=== PATIENT | male | born 1995 | race Caucasian/White ===

== ENCOUNTER 2017-06-02 20:13 | Emergency (ER) | payer SELFPAY ==
[~2017-06-02 20:13] MED LIST: EPIP0.3I IM; HYDR50TA94 PO; MONT10TA2 PO; PRED20 PO; RANI150C PO
== END 2017-06-02 20:26 | disposition left against medical advice (07) ==
LOC: NED 20:13
DX: R10.9 Unspecified abdominal pain (principal); Z53.21 Procedure and treatment not carried out due to patient leaving prior to being seen by health care provider
CPT/HCPCS: 99281

== ENCOUNTER 2017-07-10 15:50 | Emergency (ER) | payer SELFPAY ==
[~2017-07-10] VITALS: Ht 177.8 cm; Wt 92.0 kg
[2017-07-10 16:09] VITALS: BP 144/66; PULSE 55; RESP 16; TEMP 98.3; O2SAT 100
--- NOTE | 2017-07-10 17:34 | PD ---
HPI Chief Complaint: Abdominal Pain Time Seen by Provider: 17:34 Travel History International Travel<30 days: No Contact w/Intl Traveler<30days: No Traveled to known affect area: No History of Present Illness HPI 21-year-old male came to the emergency room with his mother with history of severe left upper quadrant abdominal pain that started this morning and made the patient double over. The pain continued for few hours until the patient came to the emergency room triage and while in the waiting room the pain went away on its own. Currently patient is pain-free. He says he has had similar symptoms about 4-5 weeks ago and again 4 months ago. He was seen in urgent care 4 months ago and was told that it could be gastric ulcer and was discharged home on medications for that. Patient took it and finished the course until the symptoms return 4-6 weeks ago. Vital signs have been stable. Currently his pain is 0 out of 10. When the pain comes patient says that goes from the front to the back of his left upper side. Pain seems to get worse when he tries to eat or drink something while he is having one of the episodes. No history of associated vomiting or diarrhea. No history of constipation. Pain feels like a knife sticking through his abdomen going to the back. No hematuria, dysuria or any other urinary symptoms. [facility] Past Medical History Narrative Medical List of his past medical, surgical, social and family history is reviewed from the nursing note Immunizations Current: Yes Social History Alcohol Use: No Tobacco Use: Yes (chews) Substance Use: No Allergies-Medications (Allergen,Severity, Reaction): Coded Allergies: montelukast (Verified Allergy, Unknown, Swelling, 07/10/17) Comments List of his allergies reviewed from the nursing note. Reported Meds & Prescriptions Reported Meds & Active Scripts Active Flomax (Tamsulosin HCl) 0.4 Mg Cap 0.4 Mg PO HS Macrobid (Nitrofurantoin Monoh/Nitrofur Macro) 100 Mg Cap 100 Mg PO BID 10 Days Zofran Odt (Ondansetron Odt) 4 Mg Tab 4 Mg SL Q6HR PRN Hydrocodone-Acetaminophen 5-325 mg Tab 1 Tab PO Q6H PRN Epipen (Epinephrine HCl) 0.3 Mg Inj 0.3 Mg IM ONCE PRN GIVE IM IN THIGH, MAY REPEAT IF NEEDED Deltasone (Prednisone) 20 Mg Tab 20 Mg PO BID Zantac (Ranitidine HCl) 150 Mg Cap 150 Mg PO BID Atarax (Hydroxyzine HCl) 50 Mg Tab 50 Mg PO Q6HR PRN Reported Singulair (Montelukast Sodium) 10 Mg Tab 10 Mg PO HS Narrative Medication List of his home medications reviewed from the nursing note Review of Systems Except as stated in HPI: all other systems reviewed are Neg Gastrointestinal: Positive: Abdominal Pain Physical Exam Narrative GENERAL: Awake, alert, no obvious distress SKIN: Focused skin assessment warm/dry. HEAD: Atraumatic. Normocephalic. EYES: Pupils equal and round. No scleral icterus. No injection or drainage. ENT: No nasal bleeding or discharge. Mucous membranes pink and moist. NECK: Trachea midline. No JVD. CARDIOVASCULAR: Regular rate and rhythm. No murmur appreciated. RESPIRATORY: No accessory muscle use. Clear to auscultation. Breath sounds equal bilaterally. GASTROINTESTINAL: Abdomen soft, non-tender, nondistended. Hepatic and splenic margins not palpable. MUSCULOSKELETAL: No obvious deformities. No clubbing. No cyanosis. No edema. NEUROLOGICAL: Awake and alert. No obvious cranial nerve deficits. Motor grossly within normal limits. Normal speech. PSYCHIATRIC: Appropriate mood and affect; insight and judgment normal. Data Data Last Documented VS Vital Signs Date Time Temp Pulse Resp B/P (MAP) Pulse Ox O2 Delivery O2 Flow Rate FiO2 07/10/17 20:25 55 20 136/63 (87) 100 07/10/17 16:09 98.3 Orders Orders Complete Blood Count With Diff (07/10/17 18:17) Comprehensive Metabolic Panel (07/10/17 18:17) Lipase (07/10/17 18:17) Urinalysis - C+S If Indicated (07/10/17 18:17) Abdomen, Flat & Upright (07/10/17 ) Iv Access Insert/Monitor (07/10/17 18:17) Ecg Monitoring (07/10/17 18:17) Oximetry (07/10/17 18:17) Sodium Chloride 0.9% Flush (Ns Flush) (07/10/17 18:30) Urine Culture (07/10/17 18:59) Ct Abd/Pel W/O Iv Contrast (07/10/17 ) Ceftriaxone Inj (Rocephin Inj) (07/10/17 20:15) Blood Culture (07/10/17 20:10) Ed Discharge Order (07/10/17 20:16) Labs Laboratory Tests Test 07/10/17 18:59 White Blood Count 14.7 TH/MM3 Red Blood Count 5.50 MIL/MM3 Hemoglobin 17.1 GM/DL Hematocrit 50.1 % Mean Corpuscular Volume 91.2 FL Mean Corpuscular Hemoglobin 31.2 PG Mean Corpuscular Hemoglobin Concent 34.2 % Red Cell Distribution Width 12.5 % Platelet Count 210 TH/MM3 Mean Platelet Volume 9.0 FL Neutrophils (%) (Auto) 82.3 % Lymphocytes (%) (Auto) 12.6 % Monocytes (%) (Auto) 4.7 % Eosinophils (%) (Auto) 0.1 % Basophils (%) (Auto) 0.3 % Neutrophils # (Auto) 12.1 TH/MM3 Lymphocytes # (Auto) 1.8 TH/MM3 Monocytes # (Auto) 0.7 TH/MM3 Eosinophils # (Auto) 0.0 TH/MM3 Basophils # (Auto) 0.0 TH/MM3 CBC Comment DIFF FINAL Differential Comment Urine Color LIGHT-RED Urine Turbidity HAZY Urine pH 7.0 Urine Specific [place] 1.018 Urine Protein 30 mg/dL Urine Glucose (UA) NEG mg/dL Urine Ketones 10 mg/dL Urine Occult Blood LARGE Urine Nitrite NEG Urine Bilirubin NEG Urine Urobilinogen LESS THAN 2.0 MG/DL Urine Leukocyte Esterase NEG Urine RBC /hpf Urine WBC 18 /hpf Urine Squamous Epithelial Cells <1 /hpf Urine Bacteria RARE /hpf Urine Mucus FEW /lpf Microscopic Urinalysis Comment CULTURE INDICATED Blood Urea Nitrogen 13 MG/DL Creatinine 1.10 MG/DL Random Glucose 126 MG/DL Total Protein 7.8 GM/DL Albumin 4.7 GM/DL Calcium Level 9.8 MG/DL Alkaline Phosphatase 124 U/L Aspartate Amino Transf (AST/SGOT) 15 U/L Alanine Aminotransferase (ALT/SGPT) 19 U/L Total Bilirubin 0.9 MG/DL Sodium Level 140 MEQ/L Potassium Level 3.8 MEQ/L Chloride Level 106 MEQ/L Carbon Dioxide Level 23.8 MEQ/L Anion Gap 10 MEQ/L Estimat Glomerular Filtration Rate 86 ML/MIN Lipase 166 U/L [facility] Medical Decision Making Medical Screen Exam Complete: Yes Emergency Medical Condition: Yes Medical Record Reviewed: Yes Differential Diagnosis Acute gastritis, acute pancreatitis, ureteral colic, UTI Narrative Course 6:39 PM awaiting for blood test results to come back. I have ordered an x-ray of the abdomen and pelvis. I have explained to the patient that the fact that pain is completely gone and the abdomen is soft and nonsurgical my plan is if the workup is negative he will be discharged home. He will need to find a primary care for himself and have a referral to a GI specialist for further outpatient workup. 7:36 PM blood test results are back and patient has some leukocytosis. UA suggestive of large quantity of blood. Given this I am concerned for ureteral calculus. I have ordered a CAT scan of his abdomen and pelvis. X-ray is negative. Awaiting for the CAT scan to be done and resulted. 8:[address] scan shows a 7 mm proximal ureteral stone causing moderate obstructive uropathy. UA also was suggestive of possible UTI. Have ordered IV Rocephin and blood culture given the fact the patient has some leukocytosis. However given the fact that he is afebrile and his pain is controlled uncomfortable discharging him home on pain medication and antibiotic. He will need to follow-up with the urologist solutions analyst. Procedures EKG Prior to Arrival: No Diagnosis Primary Impression: Ureteral colic Additional Impressions: UTI (urinary tract infection) Qualified Codes: N39.0 - Urinary tract infection, site not specified; R31.9 - Hematuria, unspecified Leukocytosis Qualified Codes: D72.829 - Elevated white blood cell count, unspecified Referrals: Redd Davey MD 2 days Additional Instructions: Please call the urologist was name and number been provided to you on the discharge instruction. Take the medications as per the prescription direction. Return to the ER if condition worsens any other new concerns like vomiting leading to unable to hold your medications down and/or fever. Med/Other Pt SpecificInfo: Prescription(s) given Scripts Tamsulosin (Flomax) 0.4 Mg Cap 0.4 MG PO HS for Manage Prostate Problems, #30 CAP 0 Refills Prov: Lucia Kulkarni MD 07/10/17 Nitrofurantoin Monohydrate Macrocrystals (Macrobid) 100 Mg Cap 100 MG PO BID for Infection for 10 Days, #20 CAP 0 Refills Prov: Lucia Kulkarni MD 07/10/17 Ondansetron Odt (Zofran Odt) 4 Mg Tab 4 MG SL Q6HR Y for Nausea/Vomiting, #30 TAB 0 Refills Prov: Lucia Kulkarni MD 07/10/17 Hydrocodone-Acetaminophen (Hydrocodone-Acetaminophen) 5-325 mg Tab 1 TAB PO Q6H Y for PAIN, #15 TAB 0 Refills Prov: Lucia Kulkarni MD 07/10/17 Disposition: 01 DISCHARGE HOME Condition: Stable Lucia Kulkarni MD Jul 10, 2017 17:34
[2017-07-10] MEDS ORDERED: SODIUM CHLORIDE 0.9% FLUSH 10 ML FLUSH IV FLUSH PRN (18:30)
[2017-07-10 19:14] LABS: AUTOMATED NEUTROPHIL # 12.1 TH/MM3 (1.8-7.7); BASOPHIL % 0.3 % (0.0-2.0); EOSINOPHIL % 0.1 % (0.0-4.0); HEMATOCRIT 50.1 % (39.0-51.0); HEMOGLOBIN 17.1 GM/DL (13.0-17.0); LYMPH % 12.6 % (9.0-44.0); LYMPHOCYTE # 1.8 TH/MM3 (1.0-4.8); MEAN CELL VOLUME 91.2 FL (80.0-100.0); MEAN CORPUSCULAR HEMOGLOBIN 31.2 PG (27.0-34.0); MEAN CORPUSCULAR HGB CONC 34.2 % (32.0-36.0); MONO % 4.7 % (0.0-8.0); MONOCYTE # 0.7 TH/MM3 (0-0.9); NEUT % 82.3 % (16.0-70.0); PLATELET COUNT 210 TH/MM3 (150-450); RED CELL DISTRIBUTION WIDTH 12.5 % (11.6-17.2); WHITE BLOOD COUNT 14.7 TH/MM3 (4.0-11.0)
[2017-07-10 19:23] LABS: BACTERIA, URINE RARE /hpf; BILIRUBIN, URINE NEG (NEG); BLOOD, URINE LARGE (NEG); GLUCOSE,URINE NEG (NEG); KETONE, URINE 10 mg/dL (NEG); MUCUS URINE FEW /lpf (OCC); NITRITE,URINE NEG (NEG); SQUAMOUS EPITHELIAL CELL URINE <1 /hpf (0-5); URINE LEUKOCYTE ESTERASE NEG (NEG)
[2017-07-10 19:24] LABS: URINE COLOR LIGHT-RED (YELLW/STRAW)
[2017-07-10 19:31] LABS: ALBUMIN 4.7 GM/DL (3.4-5.0); ALT (GPT) 19 U/L (9-52); AST (GOT) 15 U/L (15-39); BICARBONATE 23.8 MEQ/L (21.0-32.0); BLOOD UREA NITROGEN 13 MG/DL (7-18); CALCIUM 9.8 MG/DL (8.5-10.1); CHLORIDE 106 MEQ/L (98-107); GLOMERULAR FILTRATION RATE 86 ML/MIN (>89); GLUCOSE,RANDOM 126 MG/DL (74-106); SODIUM (NA) 140 MEQ/L (136-145)
--- NOTE | 2017-07-10 19:33 | RADRPT ---
EXAM DATE: 07/10/2017 7:12 PM EDT AGE/SEX: 21 years / Male INDICATIONS: Abdominal Pain that radiates to the back. CLINICAL DATA: This is the patient's initial encounter. Patient reports that signs and symptoms have been present for 1 day and indicates a pain score of 5/10. MEDICAL/SURGICAL HISTORY: . . COMPARISON: No prior [place] exams available for comparison. FINDINGS: Supine and upright views of the abdomen were performed. The abdominal bowel gas pattern is normal. No air-fluid levels are seen. No abnormal masses, calcifications, or organomegaly is seen. The visualiz ed lower lungs are clear. No evidence of free intraperitoneal gas. The osseous structures are unremar kable. CONCLUSION: Negative examination. Electronically signed by: Beto Greene MD 07/10/2017 7:32 PM EDT
[2017-07-10 19:34] LABS: ALKALINE PHOSPHATASE 124 U/L (45-117); TOTAL BILIRUBIN ADULT 0.9 MG/DL (0.2-1.0); TOTAL PROTEIN 7.8 GM/DL (6.4-8.2)
--- NOTE | 2017-07-10 19:58 | RADRPT ---
EXAM DATE: 07/10/2017 7:53 PM EDT AGE/SEX: 21 years / Male INDICATIONS: Hematuria. Left abdominal pain. CLINICAL DATA: This is the patient's initial encounter. Patient reports that signs and symptoms have been present for 3 days and indicates a pain score of 2/10. MEDICAL/SURGICAL HISTORY: Ulcers. Cardiovascular disease. None. RADIATION DOSE: 7.53 CTDI (mGy) COMPARISON: No prior [place] exams available for comparison. TECHNIQUE: Multiple contiguous axial images were obtained through the abdomen. Images were obtained using multiple row detector helical technique. Using dose reduction techniques, radiation dose was ke pt as low as reasonably achievable to obtain optimal diagnostic quality images. FINDINGS: Lower Lungs: The visualized lower lungs are clear. Liver: The liver has a homogeneous density without space-occupying lesion. There is no dilation of th e biliary tree. Spleen: Homogeneous density without enlargement. Pancreas: Unremarkable without mass or calcification. Kidneys: There is acute obstructive uropathy of the left proximal ureter secondary to a 7 mm calcifie d calculus resulting in mild hydronephrosis on the left. No definite renal mass is noted on either si de. No hydronephrosis is noted on the right. Adrenal Glands: Unremarkable. Aorta: The aorta and proximal iliac vessels are grossly unremarkable without aneurysmal dilation. Bowel/Mesentery: The bowel loops are grossly unremarkable. The cecum and sigmoid colon have a normal configuration. Abdominal Wall: Intact. Retroperitoneum: No evidence of adenopathy in the retrocrural, para-aortic, or deep pelvic regions. Bladder: Contours are smooth. Reproductive Organs: No abnormal masses or calcifications seen. Inguinal: The inguinal region is unremarkable without evidence of adenopathy. Bony Structures: Mild degenerative changes and scoliosis of the thoracolumbar spine are noted. CONCLUSION: 1. Acute obstructive uropathy of the left proximal ureter secondary to a 7 mm calcified calculus res ulting in mild hydronephrosis on the left. 2. Mild degenerative changes and scoliosis of the thoracolumbar spine. Electronically signed by: Beto Greene MD 07/10/2017 7:57 PM EDT
[2017-07-10] MEDS ORDERED: cefTRIAXone INJ 1,000 MG in SODIUM CHLORIDE 0.9% INJ 100 ML IV ONE (20:15)
[2017-07-10] MEDS ORDERED: ZOFR4TAB3 SL (20:16)
[2017-07-10] MEDS ORDERED: TAMS5CAP PO (20:16)
[2017-07-10] MEDS ORDERED: HYDR-3516 PO (20:16)
[2017-07-10] MEDS ORDERED: MACR100C2 PO (20:16)
[2017-07-10 20:25] VITALS: BP 136/63
== END 2017-07-10 20:52 | disposition home or self-care (01) ==
LOC: NEPD 15:50
DX: N13.2 Hydronephrosis with renal and ureteral calculous obstruction (principal); N39.0 Urinary tract infection, site not specified; D72.829 Elevated white blood cell count, unspecified; M41.9 Scoliosis, unspecified; M51.35 Other intervertebral disc degeneration, thoracolumbar region; F17.220 Nicotine dependence, chewing tobacco, uncomplicated; Z88.8 Allergy status to other drugs, medicaments and biological substances; Z79.899 Other long term (current) drug therapy
CPT/HCPCS: 74019; 74176; 80053; 81001; 83690; 85025; 87086; 96365; 99285; J0696